=== PATIENT | male | born 1985 | race Caucasian/White ===

== ENCOUNTER 2017-04-20 11:05 | Emergency (ER) | payer MEDICARE, MEDICAID ==
[~2017-04-20] VITALS: Ht 177.8 cm; Wt 68.0 kg
[2017-04-20 11:07] VITALS: BP 162/95; PULSE 78; RESP 20; TEMP 97.9; O2SAT 99
--- NOTE | 2017-04-20 11:54 | PD ---
Physical Exam Date Seen by Provider: Apr 20, 2017 Time Seen by Provider: 11:51 Narrative 31 yr old male here with n/v and stomach pain that started this morning. He admits to eating new food last night and this morning. Abdominal pain is described as aching mid to left lower quadrant. He denies any fever, but thinks he may have chills. No pmh other that eye issues. Data Data Last Documented VS Vital Signs Date Time Temp Pulse Resp B/P Pulse Ox O2 Delivery O2 Flow Rate FiO2 04/20/17 11:07 97.9 78 20 162/95 99 Room Air [facility] Medical Record Reviewed: Yes Supervised Visit with HELENA: No Narrative Course MIld abdominal tenderness to light palpation. Pain is rates at 3/10 without radiation. He is awaiting bed placement. Scripts No Active Prescriptions or Reported Meds Condition: Stable Ruth Hwang Apr 20, 2017 11:54
[2017-04-20] MEDS ORDERED: SODIUM CHLOR 0.9% 1000 ML INJ 1,000 ML IV SCH (12:08)
[2017-04-20] MEDS ORDERED: FAMOTIDINE 20 MG/2 ML VIAL IV PUSH ONE (12:15)
[2017-04-20] MEDS ORDERED: ONDANSETRON HCL 4 MG/2 ML VIAL IVP ONE (12:15)
[2017-04-20] MEDS ORDERED: SODIUM CHLORIDE 0.9% FLUSH 10 ML FLUSH IV FLUSH PRN (12:15)
[2017-04-20 12:29] VITALS: O2SAT 99
[2017-04-20 12:50] LABS: AUTOMATED NEUTROPHIL # 14.2 TH/MM3 (1.8-7.7); BASOPHIL # 0.1 TH/MM3 (0-0.2); BASOPHIL % 0.3 % (0.0-2.0); EOSINOPHIL % 0.1 % (0.0-4.0); HEMATOCRIT 47.6 % (39.0-51.0); HEMO FLAGS DIFF FINAL; LYMPH % 7.5 % (9.0-44.0); LYMPHOCYTE # 1.2 TH/MM3 (1.0-4.8); MEAN CELL VOLUME 82.8 FL (80.0-100.0); MEAN CORPUSCULAR HEMOGLOBIN 27.9 PG (27.0-34.0); MEAN CORPUSCULAR HGB CONC 33.7 % (32.0-36.0); MONO % 4.2 % (0.0-8.0); NEUT % 87.9 % (16.0-70.0); PLATELET COUNT 292 TH/MM3 (150-450); RED BLOOD COUNT 5.75 MIL/MM3 (4.50-5.90); RED CELL DISTRIBUTION WIDTH 13.1 % (11.6-17.2); WHITE BLOOD COUNT 16.2 TH/MM3 (4.0-11.0)
[2017-04-20 13:06] LABS: ALT (GPT) 22 U/L (12-78); ANION GAP 12 MEQ/L (5-15); AST (GOT) 18 U/L (15-37); BICARBONATE 21.9 MEQ/L (21.0-32.0); BLOOD UREA NITROGEN 12 MG/DL (7-18); CHLORIDE 105 MEQ/L (98-107); GLOMERULAR FILTRATION RATE 62 ML/MIN (>89); POTASSIUM 4.1 MEQ/L (3.5-5.1); SODIUM (NA) 139 MEQ/L (136-145)
[2017-04-20 13:09] LABS: ALKALINE PHOSPHATASE 83 U/L (45-117); TOTAL BILIRUBIN ADULT 1.1 MG/DL (0.2-1.0)
[2017-04-20] MEDS ORDERED: IOHEXOL 350 MG/ML 10 ML VIAL (for RAD DIAG) IV ONE (15:07)
--- NOTE | 2017-04-20 15:26 | RADRPT ---
EXAM DATE/TIME: 04/20/2017 14:51 [facility] COMPARISON: No previous studies available for comparison. INDICATIONS : Hypogastric pain today. IV CONTRAST: 81 cc Omnipaque 350 (iohexol) IV ORAL CONTRAST: No oral contrast ingested. RADIATION DOSE: 4.75 CTDIvol (mGy) MEDICAL HISTORY : None SURGICAL HISTORY : None. ENCOUNTER: Initial ACUITY: 1 day PAIN SCALE: 5/10 LOCATION: hypogastric abdomen TECHNIQUE: Volumetric scanning of the abdomen and pelvis was performed. Using automated exposure control and ad justment of the mA and/or kV according to patient size, radiation dose was kept as low as reasonably achievable to obtain optimal diagnostic quality images. DICOM format image data is available electro nically for review and comparison. FINDINGS: CT Abdomen: The liver, spleen, pancreas, left kidney adrenals are unremarkable. There is no evidence for any appreciable pathological adenopathy, free fluid, or bowel obstruction. There is an approxima te 8mm right proximal ureteral stone causing moderate hydronephrosis. CT pelvis: There is no evidence for mass, abscess formation, or any significant adenopathy within the pelvis. Subcentimeter bone island is present in the left since his pubis. The appendix appears intac t without definite signs of appendicitis. CONCLUSION: Approximate 8mm right proximal ureteral stone slightly past the UPJ causing moderate hydronephrosis. Pati Pike MD on April 20, 2017 at 15:12 Board Certified Radiologist. This report was verified electronically.
[2017-04-20 16:14] LABS: BLOOD, URINE MOD (NEG); CALCIUM OXALATE CRYSTALS,URINE RARE /hpf; COMMENT (UR) CULT NOT INDICATED; CULTURE IF INDICATED CULT NOT INDICATED; GLUCOSE,URINE NEG (NEG); KETONE, URINE 10 mg/dL (NEG); MUCUS URINE FEW /lpf (OCC); NITRITE,URINE NEG (NEG); PH, URINE 6.5 (5.0-8.5); URINE COLOR LIGHT-YELLOW (YELLW/STRAW)
[2017-04-20] MEDS ORDERED: TAMS5CAP PO (16:31)
[2017-04-20] MEDS ORDERED: HYDR-3533 PO (16:31)
--- NOTE | 2017-04-20 16:31 | PD ---
HPI Chief Complaint: GI Complaint Time Seen by Provider: 12:02 Travel History International Travel<30 days: No Contact w/Intl Traveler<30days: No Traveled to known affect area: No History of Present Illness HPI Patient is a 31-year-old male who comes in complaining of nausea, vomiting, diarrhea. He says he has some pain in the center part of his abdomen as well as right lower quadrant. He denies fever or chills. He says the last thing he ate this morning was a burrito. He says he was feeling fine last night prior to going to bed. He denies any urinary symptoms. 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) Joint Replacement: No Oral Surgery: Yes (4 WISDOM EXTRACTED) Pacemaker: No Other Surgery: No Social History Alcohol Use: No Tobacco Use: No Substance Use: No Allergies-Medications (Allergen,Severity, Reaction): Coded Allergies: No Known Allergies (Verified , 04/20/17) Reported Meds & Prescriptions Reported Meds & Active Scripts Active No Active Prescriptions or Reported Medications Review of Systems Except as stated in HPI: all other systems reviewed are Neg General / Constitutional: No: Fever, Chills HENT: No: Headaches, Lightheadedness Cardiovascular: No: Chest Pain or Discomfort Respiratory: No: Shortness of Breath Gastrointestinal: Positive: Nausea, Vomiting, Diarrhea, Abdominal Pain Genitourinary: No: Dysuria, Flank Pain Skin: No Rash, No Change in Pigmentation Neurologic: No: Weakness, Dizziness Physical Exam Narrative GENERAL: Awake and alert, in no acute distress. SKIN: Focused skin assessment warm/dry. HEAD: Atraumatic. Normocephalic. EYES: Pupils equal and round. No scleral icterus. ENT: No nasal bleeding or discharge. Mucous membranes pink and moist. NECK: Trachea midline. No JVD. CARDIOVASCULAR: Regular rate and rhythm. No murmur appreciated. RESPIRATORY: No accessory muscle use. Clear to auscultation. Breath sounds equal bilaterally. GASTROINTESTINAL: Abdomen soft, nondistended. Mild tenderness to palpation around the umbilicus as well as the right lower quadrant. No rebound or guarding. No CVA tenderness. MUSCULOSKELETAL: No obvious deformities. No clubbing. No cyanosis. No edema. NEUROLOGICAL: Awake and alert. No obvious cranial nerve deficits. Motor grossly within normal limits. Normal speech. PSYCHIATRIC: Appropriate mood and affect; insight and judgment normal. Data Data Last Documented VS Vital Signs Date Time Temp Pulse Resp B/P Pulse Ox O2 Delivery O2 Flow Rate FiO2 04/20/17 12:29 99 04/20/17 11:07 97.9 78 20 162/95 Room Air Orders Complete Blood Count With Diff (04/20/17 12:08) Comprehensive Metabolic Panel (04/20/17 12:08) Iv Access Insert/Monitor (04/20/17 12:08) Ecg Monitoring (04/20/17 12:08) Oximetry (04/20/17 12:08) Ondansetron Inj (Zofran Inj) (04/20/17 12:15) Sodium Chlor 0.9% 1000 Ml Inj (Ns 1000 M (04/20/17 12:08) Sodium Chloride 0.9% Flush (Ns Flush) (04/20/17 12:15) Famotidine Inj (Pepcid Inj) (04/20/17 12:15) Ct Abd/Pel W Iv Contrast(Rout) (04/20/17 ) Iohexol 350 Inj (Omnipaque 350 Inj) (04/20/17 15:07) Urinalysis - C+S If Indicated (04/20/17 15:33) Labs Laboratory Tests Test 04/20/17 04/20/17 12:30 15:14 White Blood Count 16.2 TH/MM3 Red Blood Count 5.75 MIL/MM3 Hemoglobin 16.1 GM/DL Hematocrit 47.6 % Mean Corpuscular Volume 82.8 FL Mean Corpuscular Hemoglobin 27.9 PG Mean Corpuscular Hemoglobin 33.7 % Concent Red Cell Distribution Width 13.1 % Platelet Count 292 TH/MM3 Mean Platelet Volume 7.7 FL Neutrophils (%) (Auto) 87.9 % Lymphocytes (%) (Auto) 7.5 % Monocytes (%) (Auto) 4.2 % Eosinophils (%) (Auto) 0.1 % Basophils (%) (Auto) 0.3 % Neutrophils # (Auto) 14.2 TH/MM3 Lymphocytes # (Auto) 1.2 TH/MM3 Monocytes # (Auto) 0.7 TH/MM3 Eosinophils # (Auto) 0.0 TH/MM3 Basophils # (Auto) 0.1 TH/MM3 CBC Comment DIFF FINAL Differential Comment Sodium Level 139 MEQ/L Potassium Level 4.1 MEQ/L Chloride Level 105 MEQ/L Carbon Dioxide Level 21.9 MEQ/L Anion Gap 12 MEQ/L Blood Urea Nitrogen 12 MG/DL Creatinine 1.34 MG/DL Estimat Glomerular Filtration 62 ML/MIN Rate Random Glucose 136 MG/DL Calcium Level 9.7 MG/DL Total Bilirubin 1.1 MG/DL Aspartate Amino Transf 18 U/L (AST/SGOT) Alanine Aminotransferase 22 U/L (ALT/SGPT) Alkaline Phosphatase 83 U/L Total Protein 8.5 GM/DL Albumin 4.9 GM/DL Urine Color LIGHT-YELLOW Urine Turbidity CLEAR Urine pH 6.5 Urine Specific [place] GREATER THAN 1.050 Urine Protein TRACE mg/dL Urine Glucose (UA) NEG mg/dL Urine Ketones 10 mg/dL Urine Occult Blood MOD Urine Nitrite NEG Urine Bilirubin NEG Urine Urobilinogen LESS THAN 2.0 MG/DL Urine Leukocyte Esterase NEG Urine RBC 22 /hpf Urine WBC LESS THAN 1 /hpf Urine Calcium Oxalate Crystals RARE /hpf Urine Mucus FEW /lpf Microscopic Urinalysis Comment CULT NOT INDICATED MDM Medical Decision Making Medical Screen Exam Complete: Yes Emergency Medical Condition: Yes Medical Record Reviewed: Yes Differential Diagnosis Gastroenteritis versus appendicitis versus electrolyte abnormality Narrative Course Patient is a 31-year-old male comes in complaining of nausea, vomiting, diarrhea. Exam shows some tenderness around the umbilicus as well as the right lower quadrant. IV established, labs sent. Patient given IV fluids and famotidine as well as Zofran. Labs show a white blood cell count of 16.2. Creatinine is 1.34. CT abdomen and pelvis shows an 8 mm stone at the right UVJ with moderate hydronephrosis. I spoke with Dr. Gonzales of urology who suggests discharge with pain medicine and follow-up in the office. Patient is comfortable, he is tolerating PO. He has not required any pain medicine. I explained the diagnosis to him, and gave him information for Dr. Gonzales to follow-up. He is advised to follow-up in the office and return as needed for any worsening symptoms. Diagnosis Primary Impression: Renal stone Referrals: Rad Gonzales MD call for appointment Patient Instructions: General Instructions, Kidney Stones (ED) Additional Instructions: Follow up with urology, Dr. Gonzales. Drink plenty of fluids. Take pain medicine as needed. Return to the ED as needed for any worsening symptoms. Scripts Hydrocodone-Acetaminophen (Lortab)5-325 Mg Tab1 Tab PO Q6H PRN (PAIN) #10 TAB Ref 0 Prov:Stephanie Valdivia MD 04/20/17 Tamsulosin (Flomax)0.4 Mg Cap0.4 Mg PO HS #7 CAP Ref 0 Prov:Stephanie Valdivia MD 04/20/17 Disposition: 01 DISCHARGE HOME Condition: Stable Stephanie Valdivia MD Apr 20, 2017 16:31
[2017-04-20 16:42] VITALS: BP 112/68
== END 2017-04-20 16:43 | disposition home or self-care (01) ==
LOC: NEPD 11:05
DX: N13.2 Hydronephrosis with renal and ureteral calculous obstruction (principal); R19.7 Diarrhea, unspecified
CPT/HCPCS: 74177; 80053; 81001; 85025; 96361; 96374; 96375; 99285; J2405; J7030; Q9967

== ENCOUNTER 2017-08-21 10:29 | Emergency (ER) | payer MEDICARE, MEDICAID ==
[~2017-08-21] VITALS: Ht 170.2 cm; Wt 70.0 kg
[~2017-08-21 10:29] MED LIST: HYDR-3533 PO; TAMS5CAP PO
[2017-08-21 11:47] VITALS: BP 120/70; PULSE 80; RESP 16; TEMP 98.2; O2SAT 98
[2017-08-21] MEDS ORDERED: RESP: ALBUTEROL 2.5 MG/IPRATROPIUM 0.5 MG NEB (SCH) INH ONE (12:00)
--- NOTE | 2017-08-21 12:30 | RADRPT ---
EXAM DATE/TIME: 08/21/2017 12:10 [facility] COMPARISON: CHEST PA & LAT, July 19, 2016, 12:40. INDICATIONS : Cough for 1 week. MEDICAL HISTORY : None. SURGICAL HISTORY : None. ENCOUNTER: Initial ACUITY: 1 week PAIN SCORE: 0/10 LOCATION: Bilateral chest FINDINGS: PA and lateral views of the chest demonstrate the lungs to be symmetrically aerated without evidence of mass, infiltrate or effusion. The cardiomediastinal contours are unremarkable. Osseous structure s are intact. CONCLUSION: 1. No acute cardiopulmonary findings. Sung Molina MD on August 21, 2017 at 12:26 Board Certified Radiologist. This report was verified electronically.
--- NOTE | 2017-08-21 12:48 | PD ---
HPI . Cough Chief Complaint: Cold / Flu Symptoms Time Seen by Provider: 11:46 Travel History International Travel<30 days: Yes Contact w/Intl Traveler<30days: [place] Traveled to: [facility] TO [facility], [facility], [facility] Traveled to known affect area: No History of Present Illness HPI This patient presents with a chief complaint of a cough. Onset was last week. He states that there is been no change in his symptoms over the course of last week. He does report a productive cough. He rates the severity of his symptoms as 3/10. He has not noted any modifying factors. His symptoms have been associated with a sore throat. His symptoms are unrelieved by Mucinex, cough drops and Chloraseptic spray. He is concerned that his symptoms are secondary to a deviated septum. 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) Joint Replacement: No Oral Surgery: Yes (4 WISDOM EXTRACTED) Pacemaker: No Other Surgery: No Social History Alcohol Use: No Tobacco Use: No Substance Use: No Allergies-Medications (Allergen,Severity, Reaction): Coded Allergies: No Known Allergies (Verified Adverse Reaction, Unknown, 08/21/17) Reported Meds & Prescriptions Reported Meds & Active Scripts Active Tessalon Perles (Benzonatate) 100 Mg Cap 100 Mg PO TID PRN Review of Systems Except as stated in HPI: all other systems reviewed are Neg General / Constitutional: No: Fever, Chills Respiratory: Positive: Cough Physical Exam Narrative GENERAL: Patient is awake and alert and in no acute distress. SKIN: Warm and dry without rash or lesions. HEAD: Normocephalic/atraumatic. 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 NECK: Neck is supple without cervical adenopathy. CARDIOVASCULAR: Heart sounds are normal. RESPIRATORY: Lungs are clear. He had an occasional cough during the examination. MUSCULOSKELETAL: Atraumatic. NEUROLOGICAL: PSYCHIATRIC: Appropriate mood and affect. Data Data Last Documented VS Vital Signs Date Time Temp Pulse Resp B/P (MAP) Pulse Ox O2 Delivery O2 Flow Rate FiO2 08/21/17 13:34 08/21/17 11:47 98.2 80 16 98 Room Air Orders Orders Chest, Pa & Lat (08/21/17 11:46) Albuterol-Ipratropium Neb (Duoneb Neb) (08/21/17 12:00) Ed Discharge Order (08/21/17 13:16) MDM Medical Decision Making Medical Screen Exam Complete: Yes Emergency Medical Condition: Yes Differential Diagnosis Differential diagnosis includes but is not limited to viral respiratory illness , bronchitis, pneumonia, allergies, CHF, asthma/COPD. Narrative Course This patient presents with a weeklong history of cough. I have ordered a chest x-ray and a single DuoNeb. Diagnosis Primary Impression: Cough Scripts Benzonatate (Tessalon Perles) 100 Mg Cap 100 MG PO TID Y for COUGH, #15 CAP 0 Refills Prov: Kath Nguyen MD 08/21/17 Kath Nguyen MD Aug 21, 2017 12:48
--- NOTE | 2017-08-21 13:16 | PD ---
Physical Exam Date Seen by Provider: Aug 21, 2017 Time Seen by Provider: 12:45 Narrative GENERAL: Well-nourished, well-developed male in no acute distress. Afebrile. Ambulatory. SKIN: Focused skin assessment warm/dry. HEAD: Normocephalic. EYES: No scleral icterus. No injection or drainage. ENT: Mucosa pink and moist. Moderate erythema without edema or exudates. No uvular edema. No uvular, palatal, or tonsillar deviation. Airway patent. Nasal turbinates appear normal without nasal blood, purulent drainage or septal hematoma. EARS: Bilateral pinnae and external canals appear within normal limits. Bilateral tympanic membranes without erythema, dullness or perforation. NECK: Supple, trachea midline. No JVD or lymphadenopathy. CARDIOVASCULAR: Regular rate and rhythm without murmurs, gallops, or rubs. RESPIRATORY: Breath sounds equal bilaterally. No accessory muscle use. No crackles, rales, wheezes, or rhonchi. Data Data Last Documented VS Vital Signs Date Time Temp Pulse Resp B/P (MAP) Pulse Ox O2 Delivery O2 Flow Rate FiO2 08/21/17 11:47 98.2 80 16 120/70 (87) 98 Room Air Orders Orders Chest, Pa & Lat (08/21/17 11:46) Albuterol-Ipratropium Neb (Duoneb Neb) (08/21/17 12:00) MDM Medical Record Reviewed: Yes Supervised Visit with HELENA: Yes Differential Diagnosis Bronchitis, pneumonia, cough Narrative Course Patient signed out to me for disposition pending results. In short, 32-year-old male presents to the emergency room for evaluation of productive cough for the past week. Patient has associated sore throat but denies any other upper respiratory symptoms. Denies fever, chills, nausea, vomiting. Physical exam is reassuring. Vital signs stable. No crackles, rales , wheezes, or rhonchi. Patient resting comfortably and in no acute distress. No increased work of breathing. Mild erythema of the pharynx. Chest x-ray is negative. This is upper respiratory infection/bronchitis. Patient was given DuoNeb in the emergency room. Discharged with prescription for Tessalon Perles and told to follow up with her PCP or return for worsening symptoms. He understands and agrees to plan. Diagnosis Primary Impression: Upper respiratory infection Qualified Codes: J00 - Acute nasopharyngitis [common cold] Referrals: Primary Care Physician Additional Instruction: Rest and drink plenty of fluids. Tessalon Perles as directed, as needed for cough. Follow-up with a primary care physician. Return to the emergency room for worsening symptoms. Med/Other Pt SpecificInfo: Prescription(s) given Disposition: 01 DISCHARGE HOME Condition: Stable Rita Bonds Aug 21, 2017 13:16
[2017-08-21] MEDS ORDERED: BENZ100 PO (13:17)
== END 2017-08-21 13:35 | disposition home or self-care (01) ==
LOC: NEPD 10:29
DX: J06.9 Acute upper respiratory infection, unspecified (principal); Z94.7 Corneal transplant status
CPT/HCPCS: 71020; 94664; 99283

== ENCOUNTER 2018-01-01 13:53 | Emergency (ER) | payer MEDICARE, MEDICAID ==
[~2018-01-01] VITALS: Ht 172.7 cm; Wt 70.0 kg
[~2018-01-01 13:53] MED LIST changes: +BENZ100 PO; -HYDR-3533 PO; -TAMS5CAP PO
[2018-01-01 14:23] VITALS: BP 184/116; PULSE 112; RESP 16; TEMP 98; O2SAT 99
[2018-01-01 15:22] LABS: AMORPHOUS SEDIMENT, URINE RARE; BILIRUBIN, URINE NEG (NEG); BLOOD, URINE MOD (NEG); GLUCOSE,URINE NEG (NEG); KETONE, URINE TRACE mg/dL (NEG); MUCUS URINE FEW /lpf (OCC); NITRITE,URINE NEG (NEG); URINE COLOR YELLOW (YELLW/STRAW); URINE LEUKOCYTE ESTERASE NEG (NEG)
[2018-01-01] MEDS ORDERED: SODIUM CHLOR 0.9% 1000 ML INJ 1,000 ML IV SCH (17:03)
[2018-01-01] MEDS ORDERED: ONDANSETRON HCL 4 MG/2 ML VIAL IVP ONE (17:15)
[2018-01-01] MEDS ORDERED: SODIUM CHLORIDE 0.9% FLUSH 10 ML FLUSH IV FLUSH PRN (17:15)
[2018-01-01] MEDS ORDERED: KETOROLAC TROMETHAMINE 30 MG/ML (IVP) VIAL IVP ONE (17:15)
--- NOTE | 2018-01-01 17:41 | PD ---
HPI Chief Complaint: Flank/Kidney Pain Time Seen by Provider: 17:02 Travel History International Travel<30 days: No Contact w/Intl Traveler<30days: No Traveled to known affect area: No History of Present Illness HPI Is a 32-year-old man presents to the emergency department complaining of left flank pain and lower abdominal pain. History of kidney stones and feels similar. Some nausea vomiting today. Patient is visually impaired. No fevers or chills. No other additional symptoms. History Past Medical History Narrative Medical Visual impairment Tetanus Vaccination: > 5 Years Social History Alcohol Use: No Tobacco Use: No Allergies-Medications (Allergen,Severity, Reaction): Coded Allergies: No Known Allergies (Verified Adverse Reaction, Unknown, 01/01/18) Reported Meds & Prescriptions Reported Meds & Active Scripts Active No Active Prescriptions or Reported Medications Review of Systems Except as stated in HPI: all other systems reviewed are Neg Physical Exam Narrative GENERAL: Well-appearing 32-year-old man, no acute distress. SKIN: Focused skin assessment warm/dry. HEAD: Atraumatic. Normocephalic. EYES: Pupils equal and round. No scleral icterus. No injection or drainage. ENT: No nasal bleeding or discharge. Mucous membranes pink and moist. NECK: Trachea midline. No JVD. CARDIOVASCULAR: Regular rate and rhythm. No murmur appreciated. RESPIRATORY: No accessory muscle use. Clear to auscultation. Breath sounds equal bilaterally. GASTROINTESTINAL: Abdomen soft, non-tender, nondistended. Hepatic and splenic margins not palpable. No CVA tenderness to percussion. MUSCULOSKELETAL: No obvious deformities. No clubbing. No cyanosis. No edema. NEUROLOGICAL: Awake and alert. No obvious cranial nerve deficits. Motor grossly within normal limits. Normal speech. PSYCHIATRIC: Appropriate mood and affect; insight and judgment normal. Data Data Last Documented VS Vital Signs Date Time Temp Pulse Resp B/P (MAP) Pulse Ox O2 Delivery O2 Flow Rate FiO2 01/01/18 19:43 94 20 157/94 (115) 100 Room Air 01/01/18 14:23 98.0 Orders Orders Urinalysis - C+S If Indicated (01/01/18 14:25) Urine Culture (01/01/18 14:40) Complete Blood Count With Diff (01/01/18 17:03) Basic Metabolic Panel (Bmp) (01/01/18 17:03) Iv Access Insert/Monitor (01/01/18 17:03) Ct Abd/Pel W/O Iv Contrast (01/01/18 17:03) Ondansetron Inj (Zofran Inj) (01/01/18 17:15) Sodium Chlor 0.9% 1000 Ml Inj (Ns 1000 M (01/01/18 17:03) Sodium Chloride 0.9% Flush (Ns Flush) (01/01/18 17:15) Ketorolac Inj (Toradol Inj) (01/01/18 17:15) Labs Laboratory Tests Test 01/01/18 14:40 01/01/18 17:30 Urine Color YELLOW Urine Turbidity CLEAR Urine pH 6.0 Urine Specific [place] 1.018 Urine Protein TRACE mg/dL Urine Glucose (UA) NEG mg/dL Urine Ketones TRACE mg/dL Urine Occult Blood MOD Urine Nitrite NEG Urine Bilirubin NEG Urine Urobilinogen LESS THAN 2.0 MG/DL Urine Leukocyte Esterase NEG Urine RBC 146 /hpf Urine WBC 12 /hpf Urine Amorphous Sediment RARE Urine Mucus FEW /lpf Microscopic Urinalysis Comment CULTURE INDICATED White Blood Count 14.9 TH/MM3 Red Blood Count 5.70 MIL/MM3 Hemoglobin 15.9 GM/DL Hematocrit 47.2 % Mean Corpuscular Volume 82.7 FL Mean Corpuscular Hemoglobin 27.9 PG Mean Corpuscular Hemoglobin Concent 33.8 % Red Cell Distribution Width 13.2 % Platelet Count 258 TH/MM3 Mean Platelet Volume 8.0 FL Neutrophils (%) (Auto) 84.5 % Lymphocytes (%) (Auto) 10.5 % Monocytes (%) (Auto) 4.6 % Eosinophils (%) (Auto) 0.1 % Basophils (%) (Auto) 0.3 % Neutrophils # (Auto) 12.6 TH/MM3 Lymphocytes # (Auto) 1.6 TH/MM3 Monocytes # (Auto) 0.7 TH/MM3 Eosinophils # (Auto) 0.0 TH/MM3 Basophils # (Auto) 0.0 TH/MM3 CBC Comment DIFF FINAL Differential Comment Blood Urea Nitrogen 10 MG/DL Creatinine 1.13 MG/DL Random Glucose 101 MG/DL Calcium Level 9.4 MG/DL Sodium Level 141 MEQ/L Potassium Level 3.9 MEQ/L Chloride Level 109 MEQ/L Carbon Dioxide Level 21.4 MEQ/L Anion Gap 11 MEQ/L Estimat Glomerular Filtration Rate 75 ML/MIN [facility] Medical Decision Making Medical Screen Exam Complete: Yes Emergency Medical Condition: Yes Interpretation(s) LABS: CBC remarkable for moderate leukocytosis. BMP unremarkable UA with hematuria CT with 6 mm stone at the proximal ureter just beyond the left UPJ. Differential Diagnosis Renal lithiasis, UTI, enteritis, other Narrative Course Medical decision making INITIAL: Is a 29-year-old male presents to the emergency department complaining of abdominal pain. Flank pain suggestive of renal lithiasis. He looks otherwise well. Will check CT, labs, Toradol, Zofran, reassess. Diagnosis Primary Impression: Renal stone Patient Instructions: General Instructions Additional Instructions: Take Naprosyn as needed for [id number] pain. Take Percocet as needed for severe pain. Use caution as this can cause drowsiness. Do not take while driving. Use Zofran as a for nausea and vomiting. Drink plenty of fluids. Follow-up with your primary doctor in the next 2-4 days. Return to the emergency department for any worsening pain, intractable vomiting , fevers or chills, or any other new or worsening symptoms. Med/Other Pt SpecificInfo: Prescription(s) given Scripts Tamsulosin (Flomax) 0.4 Mg Cap 0.4 MG PO HS for Manage Prostate Problems, #30 CAP 0 Refills Prov: Demarcus Campbell MD 01/01/18 Ondansetron Odt (Ondansetron Odt) 4 Mg Tab 4 MG SL Q6HR Y for Nausea/Vomiting, #12 TAB 0 Refills Prov: Demarcus Campbell MD 01/01/18 Oxycodone-Acetaminophen (Percocet) 5-325 mg Tab 1-2 TAB PO Q6H Y for PAIN, #20 TAB 0 Refills Prov: Demarcus Campbell MD 01/01/18 Naproxen (Naproxen) 500 Mg Tab 500 MG PO BID, #20 TAB 0 Refills Prov: Demarcus Campbell MD 01/01/18 Disposition: 01 DISCHARGE HOME Condition: Stable Demarcus Campbell MD Jan 01, 2018 17:41
[2018-01-01 17:56] LABS: AUTOMATED NEUTROPHIL # 12.6 TH/MM3 (1.8-7.7); BASOPHIL % 0.3 % (0.0-2.0); EOSINOPHIL % 0.1 % (0.0-4.0); HEMATOCRIT 47.2 % (39.0-51.0); HEMOGLOBIN 15.9 GM/DL (13.0-17.0); LYMPH % 10.5 % (9.0-44.0); LYMPHOCYTE # 1.6 TH/MM3 (1.0-4.8); MEAN CELL VOLUME 82.7 FL (80.0-100.0); MEAN CORPUSCULAR HEMOGLOBIN 27.9 PG (27.0-34.0); MEAN CORPUSCULAR HGB CONC 33.8 % (32.0-36.0); MONO % 4.6 % (0.0-8.0); MONOCYTE # 0.7 TH/MM3 (0-0.9); NEUT % 84.5 % (16.0-70.0); PLATELET COUNT 258 TH/MM3 (150-450); RED CELL DISTRIBUTION WIDTH 13.2 % (11.6-17.2); WHITE BLOOD COUNT 14.9 TH/MM3 (4.0-11.0)
[2018-01-01 18:27] LABS: BICARBONATE 21.4 MEQ/L (21.0-32.0); CALCIUM 9.4 MG/DL (8.5-10.1); CREATININE 1.13 MG/DL (0.60-1.30)
[2018-01-01 19:43] VITALS: BP 157/94; PULSE 94; RESP 20; O2SAT 100
--- NOTE | 2018-01-01 19:45 | RADRPT ---
EXAM DATE/TIME: 01/01/2018 19:27 [facility] COMPARISON: CT ABDOMEN & PELVIS W CONTRAST, April 20, 2017, 14:51. INDICATIONS : Left flank pain with nausea and vomiting. ORAL CONTRAST: No oral contrast ingested. RADIATION DOSE: 7.18 CTDIvol (mGy) MEDICAL HISTORY : None SURGICAL HISTORY : None. ENCOUNTER: Initial ACUITY: 1 day PAIN SCALE: 6/10 LOCATION: Left flank TECHNIQUE: Volumetric scanning of the abdomen and pelvis was performed. Using automated exposure control and ad justment of the mA and/or kV according to patient size, radiation dose was kept as low as reasonably achievable to obtain optimal diagnostic quality images. DICOM format image data is available electro nically for review and comparison. FINDINGS: LOWER LUNGS: The visualized lower lungs are clear. LIVER: Homogeneous density without lesion. There is no dilation of the biliary tree. No calcified gallston es. SPLEEN: Normal size without lesion. PANCREAS: Within normal limits. KIDNEYS: Multiple nonobstructing renal stones are seen in the collecting systems bilaterally measuring up to 5 mm. There is a 6 mm stone in the left proximal ureter at the level of the inferior aspect of the lef t kidney just beyond the left UPJ. There is minimal dilatation of the left collecting system and left renal pelvis. The right collecting system is not dilated. ADRENAL GLANDS: Within normal limits. VASCULAR: There is no aortic aneurysm. BOWEL/MESENTERY: The stomach, small bowel, and colon demonstrate no acute abnormality. There is no free intraperitone al air or fluid. ABDOMINAL WALL: Within normal limits. RETROPERITONEUM: There is no lymphadenopathy. BLADDER: No wall thickening or mass. REPRODUCTIVE: Within normal limits. INGUINAL: There is no lymphadenopathy or hernia. MUSCULOSKELETAL: There is a focal area of sclerosis of the medial left pubic bone likely related to a bone island. Thi s is stable. CONCLUSION: 1. 6 mm stone at the proximal left ureter just beyond the left UPJ. There is minimal dilatation of th e left collecting system. 2. Several small nonobstructing renal stones seen bilaterally. Aki Mckenna MD on January 01, 2018 at 19:37 Board Certified Radiologist. This report was verified electronically.
[2018-01-01] MEDS ORDERED: PERC5TAB12 PO (19:53)
[2018-01-01] MEDS ORDERED: ONDA4TAB7 SL (19:53)
[2018-01-01] MEDS ORDERED: TAMS5CAP PO (19:53)
[2018-01-01] MEDS ORDERED: NAPR500T2 PO (19:53)
== END 2018-01-01 20:39 | disposition home or self-care (01) ==
LOC: NEPD 13:53
DX: N20.0 Calculus of kidney (principal)
CPT/HCPCS: 74176; 80048; 81001; 85025; 87086; 96374; 96375; 99284; J1885; J2405; J7030